=== PATIENT | female | born 1990 | race Caucasian/White ===

== ENCOUNTER 2021-01-09 08:03 | Inpatient (IN) ==
[2021-01-09] MEDS ORDERED: OXYTOCIN 30 UNITS/500 ML BAG IV PRN ×3 (08:05→19:37)
--- NOTE | 2021-01-09 08:12 | History & Physical Report ---
Date of Service January 09, 2021 Assessment & Plan (1) Encounter for induction of labor: PNL: Rh pos, RI, GBS neg, COVID neg Admit, labs, start IV Epidural when desired; anesthesiology consult placed Proceed with induction of labor per Pitocin augmentation protocol. Anticipate (2) Unfavorable cervix in term : (3) 41 weeks gestation of : (4) Supervision of normal intrauterine in primigravida: Admission and Anticipated Discharge Date Admission Date: January 09, 2021 History of Present Illness Primary Care Provider: Rosalba Gonzales DO Luiza Alberto is a 30 y/o female currently at 41 +2 WGA with an ALISSA 12/31/20 as determined by LMP who is here for IOL due to postdates. Her has been uncomplicated except for postdates and unfavorable cervix in term . She did have a cervical leal cath bulb last night which patient states fell out about 2 hours after returning home. - contractions; + movement; - fluid loss; - bloody show Had regular appointments with OB. Blood type: A+ Antibody screen: negative Labs 06/03/2020 and 06/07/2020 Rubella: Immune VDRL/RPR: Nonreactive Gonorrhea: Neg Chlamydia: Neg HIV: Neg HbSAg: Neg GBS: Negative 12/09/2020 COVID-19 negative today (01/09/2021) Allergies Allergy/AdvReac Type Severity Reaction Status Date / Time sumatriptan Allergy Intermediate Anaphylaxis Verified 01/08/21 19:51 Home Medications Medication Instructions Recorded Confirmed Type ascorbic acid (vitamin C) 1,000 mg 1,000 mg PO DAILY tab 05/27/20 01/08/21 History tablet,extended release magnesium 1 tab PO DAILY 05/27/20 01/08/21 History prenat.vits,zhane,phy-fdlu-bfqqw 1 tab PO DAILY 05/27/20 01/08/21 History riboflavin (vitamin B2) 400 mg 400 mg PO DAILY 05/27/20 01/08/21 History tablet Patient History Medical History 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 Long QT syndrome 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 06/14/14 Migraine without aura Surgical History History of surgery lymphadenectomy S/P wisdom tooth extraction Family History Aunt Breast cancer paternal aunt in her 40's Grandfather (Paternal) Diabetes Mother Long Q-T syndrome Denies family history of Ovarian cancer Colorectal cancer Uterine cancer Social History Smoking Status: Never smoker Hx Alcohol Use: No Hx Substance Use: No 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 Denies shortness of breath or cough. Denies chest pain. Denies breast pain. Denies dysuria or hematuria. Denies leg pain or leg swelling. Denies headache or changes in vision. Physical Exam Physical Exam: General: Alert, oriented. No acute distress. Cardiac: Regular rate and rhythm, no murmurs/rubs/gallops. Respiratory: Clear to auscultation bilaterally a/p, no wheezes/rales/rhonchi. No increased work of breathing. Symmetrical chest rise. No respiratory distress. Abdomen: Gravid. Vertex position. + heart tones. - palpable contractions. EFW 7-8# Pelvic: Dilation 3 cm; Effacement 50%; Station -2; mid and modertae per Dr. Manuel External FHT and external uterine monitors used; Category I tracing; mod FHT variability. Lower Extremities: No lower extremity edema or swelling. No deep calf pain. Harjeet's negative bilaterally Results & Data ([facility]) Laboratory Results Labs at admission today H.2 Hct: 36.6 WBC: 12.55 Plt: 309 Code Status & VTE Plan VTE Prophylaxis Plan VTE Prophylaxis will be ordered: No Supervising Physician Co-Signing Physician Notes Resident Physician Supervision Note: I interviewed and examined the patient. Discussed with Dr. Seymour and agree with findings and plan as documented in the note. Any exceptions or clarifications are listed here: postdates induction 41 2/7 weeks of uncomplicated . cx now favorable after leal. fetus category one. Plan pitocin induction with arom when indicated. epidural on demand. antic ipate . Documented By: Halina Manuel MD, FACOG Resident Activity Tracking Resident Involvement: Resident Care Provided Care Provided: OB Delivery
[2021-01-09 08:22] LABS: Hematocrit (blood only) 36.6 % (37-47); Hemoglobin 13.2 g/dL (12.0-16.0); Mean Corpuscular Hemoglobin 31.4 pg (25-34); Mean Corpuscular Hgb Conc 36.1 g/dL (32-36); Mean Corpuscular Volume 86.9 fL (80-100); Mean Platelet Volume 9.1 fL (7.4-10.4); Platelet Count 309 K/uL (130-400); RDW Coefficient of Variation 13.7 % (11.5-14.5); RDW Standard Deviation 43.4 fL (36.4-46.3); Red Blood Count 4.21 M/uL (4.2-5.4); White Blood Count 12.55 K/uL (4.8-10.8)
[2021-01-09] MEDS: LACTATED RINGER'S 1,000 ML IV PRN ×2 (09:25→12:08)
[2021-01-09] MEDS ORDERED: SODIUM CHLORIDE 0.9% INJ 10 ML VIAL ONE (11:45)
[2021-01-09] MEDS ORDERED: BUPIVACAINE 0.25% 30 ML VIAL ONE (11:45)
[2021-01-09] MEDS ORDERED: fentaNYL citrate 100 MCG/2 ML VIAL ONE (11:45)
[2021-01-09] MEDS ORDERED: ePHEDrine sulfate 50 MG/ML AMP ONE (11:45)
[2021-01-09] MEDS ORDERED: fentaNYL 2MCG/ML ROPIVACAINE 1.25MG/ML 100 ML BAG EPI ONE (11:46)
--- NOTE | 2021-01-09 12:19 | Anesthesiology Consultation ---
Date of Service January 09, 2021 Assessment & Plan (1) Encounter for pre-operative examination: Chart Review Chart Review: Acceptable Risk for Labor Epidural History Height/Weight Height: 5 ft 7 in Weight: 105.233 kg Allergies Allergy/AdvReac Type Severity Reaction Status Date / Time sumatriptan Allergy Intermediate Anaphylaxis Verified 01/08/21 19:51 Medications Home Medications Medication Instructions Recorded Confirmed Last Taken ascorbic acid (vitamin C) 1,000 mg 1,000 mg PO DAILY tab 05/27/20 01/09/21 01/08/21 17:00 tablet,extended release prenat.vits,zhane,iql-bvhn-xpzkv 1 tab PO DAILY 05/27/20 01/09/21 01/08/21 12:00 riboflavin (vitamin B2) 400 mg 400 mg PO DAILY 05/27/20 01/09/21 01/08/21 12:00 tablet magnesium 400 mg PO DAILY 01/09/21 01/09/21 01/08/21 12:00 Active Medications Generic Name Dose Route Start Last Admin Trade Name Freq PRN Reason Stop Dose Admin Oxytocin 30 units in 500 mls @ 7 mls/hr 01/09/21 08:05 01/09/21 11:20 Pitocin IV 01/11/21 08:04 0.42 units/hr .Q24H PRN 7 mls/hr Labor Induction/Augmentation Titration Protocol 0.42 UNITS/HR Lactated Ringer's 1,000 mls @ 125 mls/hr 01/09/21 08:05 01/09/21 12:08 Lr IV 01/11/21 08:04 125 mls/hr .Q8H PRN Administration L&D Protocol Protocol Past Medical History Medical History 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 Long QT syndrome 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 06/14/14 Migraine without aura Past Family History Family History Aunt Breast cancer paternal aunt in her 40's Grandfather (Paternal) Diabetes Mother Long Q-T syndrome Denies family history of Ovarian cancer Colorectal cancer Uterine cancer Past Surgical History Surgical History History of surgery lymphadenectomy S/P wisdom tooth extraction Social History Smoking Status: Never smoker Hx Alcohol Use: No Hx Substance Use: No Physical Exam Vital Signs Last Vital Signs Temp 36.7 C 01/09/21 10:54 Pulse 83 01/09/21 12:14 Resp 18 01/09/21 10:54 BP 137/86 01/09/21 11:31 Pulse Ox 99 01/09/21 12:14 Testing Laboratory Results 01/09/21 08:16
[2021-01-09] MEDS ORDERED: fentaNYL 2MCG/ML ROPIVACAINE 1.25MG/ML 100 ML BAG EPI PRN (13:18)
[2021-01-09] MEDS ORDERED: ePHEDrine sulfate 50 MG/ML AMP IV PRN (13:18)
[2021-01-09] MEDS ORDERED: NALOXONE HCL 0.4 MG/1 ML VIAL/CARP IV PRN (13:18)
[2021-01-09] MEDS ORDERED: NALOXONE HCL 1 MG in SODIUM CHLORIDE 0.9% 1000ML 1,000 ML IV PRN (13:18)
[2021-01-09] MEDS ORDERED: ONDANSETRON INJ 2 MG/ML 2 ML VIAL IV PRN (13:18)
--- NOTE | 2021-01-09 14:11 | Labor Progress Brief Note ---
Date of Service January 09, 2021 Subjective Review of Systems comfortable with epidural Assessment & Plan (1) Encounter for induction of labor: Admission and Anticipated Discharge Date Admission Date: January 09, 2021 continue current management. fetus category one. anticipate . Physical Exam Constitutional: WD/WN, vitals as above Psychiatric: A+Ox3, euthymic affect Genitourinary: cx--3/75/-2 arom--clear toco--q2-4min, pit at 11 efm--130s with mod variability, accels present, no decels Results & Data ([facility]) Vital Signs (Past 12 Hours) Vital Signs Temp Pulse Resp BP Pulse Ox 01/09/21 14:05 85 99 01/09/21 14:00 68 97 01/09/21 13:55 67 99 01/09/21 13:52 88 126/74 01/09/21 13:50 70 97 01/09/21 13:46 96 H 116/69 01/09/21 13:45 78 98 01/09/21 13:41 87 119/70 01/09/21 13:40 81 98 01/09/21 13:37 90 125/71 01/09/21 13:35 87 97 01/09/21 13:32 81 125/73 01/09/21 13:30 88 18 98 01/09/21 13:25 91 H 103/57 L 94 01/09/21 13:23 86 125/63 01/09/21 13:21 88 124/67 01/09/21 13:20 83 96 01/09/21 13:19 96 H 134/68 01/09/21 13:17 75 133/71 01/09/21 13:16 16 01/09/21 13:15 83 97 01/09/21 13:10 95 H 97 01/09/21 13:05 84 97 01/09/21 13:00 88 93 01/09/21 12:58 90 93 01/09/21 12:55 99 H 98 01/09/21 12:50 91 H 98 01/09/21 12:45 73 98 01/09/21 12:40 78 98 01/09/21 12:35 75 98 01/09/21 12:30 76 98 01/09/21 12:25 79 135/71 99 01/09/21 12:19 74 100 01/09/21 12:14 83 99 01/09/21 12:09 75 99 01/09/21 12:04 77 99 01/09/21 11:59 74 99 01/09/21 11:54 84 100 01/09/21 11:44 81 99 01/09/21 11:39 91 H 99 01/09/21 11:34 73 98 01/09/21 11:31 76 137/86 01/09/21 11:30 72 142/81 H 01/09/21 10:54 36.7 C 18 01/09/21 10:53 68 118/76 01/09/21 09:34 76 122/74 01/09/21 08:32 37 C 20 01/09/21 08:17 96 H 119/88 Coding Level of Care Code None Diagnoses Encounter for induction of labor Z34.90
--- NOTE | 2021-01-09 17:04 | Labor Progress Brief Note ---
Date of Service January 09, 2021 Subjective comfortable with epidural Assessment & Plan (1) Encounter for induction of labor: Admission and Anticipated Discharge Date Admission Date: January 09, 2021 Continue current management. ctx looking like they will likely be adequate. fetus category one. Physical Exam Constitutional: WD/WN, vitals as above Psychiatric: A+Ox3, euthymic affect Genitourinary: cx--4-5/90/-2 toco--q2-3min, pit at 17 iupc placed--initially looking like adeuqate mvus efm--130s wtih mod varibility, accels ot 150s, no decels Results & Data ([facility]) Vital Signs (Past 12 Hours) Vital Signs Temp Pulse Resp BP Pulse Ox 01/09/21 17:00 74 98 01/09/21 16:55 74 117/67 99 01/09/21 16:50 67 99 01/09/21 16:45 68 98 01/09/21 16:41 76 124/69 01/09/21 16:40 74 100 01/09/21 16:35 72 99 01/09/21 16:30 65 99 01/09/21 16:26 67 118/68 01/09/21 16:25 72 98 01/09/21 16:20 78 99 01/09/21 16:15 94 H 98 01/09/21 16:11 82 138/77 01/09/21 16:10 81 99 01/09/21 16:05 107 H 98 01/09/21 16:00 79 18 99 01/09/21 15:55 67 117/71 99 01/09/21 15:50 70 99 01/09/21 15:45 76 98 01/09/21 15:41 80 126/74 01/09/21 15:40 75 99 01/09/21 15:35 74 100 01/09/21 15:30 77 16 98 01/09/21 15:27 71 129/76 01/09/21 15:25 74 99 01/09/21 15:20 75 98 01/09/21 15:15 78 99 01/09/21 15:11 72 119/66 01/09/21 15:10 72 99 01/09/21 15:05 71 99 01/09/21 15:00 72 16 98 01/09/21 14:58 36.6 C 14 01/09/21 14:55 65 120/67 100 01/09/21 14:50 66 98 01/09/21 14:45 71 98 01/09/21 14:41 65 120/63 01/09/21 14:40 64 98 01/09/21 14:35 76 98 01/09/21 14:30 70 18 98 01/09/21 14:25 62 118/71 98 01/09/21 14:20 72 97 01/09/21 14:15 72 95 01/09/21 14:10 71 129/74 98 01/09/21 14:08 36.8 C 18 01/09/21 14:05 85 99 01/09/21 14:00 68 97 01/09/21 13:55 67 99 01/09/21 13:52 88 126/74 01/09/21 13:50 70 97 01/09/21 13:46 96 H 116/69 01/09/21 13:45 78 18 98 01/09/21 13:41 87 119/70 01/09/21 13:40 81 98 01/09/21 13:37 90 125/71 01/09/21 13:35 87 97 01/09/21 13:32 81 125/73 01/09/21 13:30 88 18 98 01/09/21 13:25 91 H 103/57 L 94 01/09/21 13:23 86 125/63 01/09/21 13:21 88 124/67 01/09/21 13:20 83 96 01/09/21 13:19 96 H 134/68 01/09/21 13:17 75 133/71 01/09/21 13:16 16 01/09/21 13:15 83 97 01/09/21 13:10 95 H 97 01/09/21 13:05 84 97 01/09/21 13:00 88 93 01/09/21 12:58 90 93 01/09/21 12:55 99 H 98 01/09/21 12:50 91 H 98 01/09/21 12:45 73 98 01/09/21 12:40 78 98 01/09/21 12:35 75 98 01/09/21 12:30 76 98 01/09/21 12:25 79 135/71 99 01/09/21 12:19 74 100 01/09/21 12:14 83 99 01/09/21 12:09 75 99 01/09/21 12:04 77 99 01/09/21 11:59 74 99 01/09/21 11:54 84 100 01/09/21 11:44 81 99 01/09/21 11:39 91 H 99 01/09/21 11:34 73 98 01/09/21 11:31 76 137/86 01/09/21 11:30 72 142/81 H 01/09/21 10:54 36.7 C 18 01/09/21 10:53 68 118/76 01/09/21 09:34 76 122/74 01/09/21 08:32 37 C 20 01/09/21 08:17 96 H 119/88 Coding Level of Care Code None Diagnoses Encounter for induction of labor Z34.90
--- NOTE | 2021-01-09 18:42 | Labor Progress Brief Note ---
Date of Service January 09, 2021 Subjective pushing Assessment & Plan (1) Encounter for induction of labor: Admission and Anticipated Discharge Date Admission Date: January 09, 2021 fetus reassuring category 2, begin second stage. anticipate . Physical Exam Constitutional: WD/WN, vitals as above Psychiatric: A+Ox3, euthymic affect Genitourinary: cx--c/c/+3 per nursing efm--120s with mod variability, accels present, variables present with contractions Results & Data ([facility]) Vital Signs (Past 12 Hours) Vital Signs Temp Pulse Resp BP Pulse Ox 01/09/21 18:40 109 H 100 01/09/21 18:35 103 H 99 01/09/21 18:30 97 H 99 01/09/21 18:26 71 131/75 01/09/21 18:25 76 100 01/09/21 18:20 85 99 01/09/21 18:15 78 99 01/09/21 18:11 68 127/73 01/09/21 18:10 68 99 01/09/21 18:05 75 99 01/09/21 18:00 65 100 01/09/21 17:56 65 119/68 01/09/21 17:55 69 99 01/09/21 17:50 36.7 C 70 18 99 01/09/21 17:45 96 H 98 01/09/21 17:40 67 119/73 99 01/09/21 17:35 67 99 01/09/21 17:30 70 16 99 01/09/21 17:26 63 121/74 01/09/21 17:25 65 98 01/09/21 17:20 63 99 01/09/21 17:15 80 99 01/09/21 17:10 74 117/72 100 01/09/21 17:05 65 99 01/09/21 17:00 74 18 98 01/09/21 16:55 74 117/67 99 01/09/21 16:50 67 99 01/09/21 16:45 68 98 01/09/21 16:41 76 124/69 01/09/21 16:40 74 100 01/09/21 16:35 72 99 01/09/21 16:30 65 99 01/09/21 16:26 67 118/68 01/09/21 16:25 72 98 01/09/21 16:20 78 99 01/09/21 16:15 94 H 98 01/09/21 16:11 82 138/77 01/09/21 16:10 81 99 01/09/21 16:05 107 H 98 01/09/21 16:00 79 18 99 01/09/21 15:55 67 117/71 99 01/09/21 15:50 70 99 01/09/21 15:45 76 98 01/09/21 15:41 80 126/74 01/09/21 15:40 75 99 01/09/21 15:35 74 100 01/09/21 15:30 77 16 98 01/09/21 15:27 71 129/76 01/09/21 15:25 74 99 01/09/21 15:20 75 98 01/09/21 15:15 78 99 01/09/21 15:11 72 119/66 01/09/21 15:10 72 99 01/09/21 15:05 71 99 01/09/21 15:00 72 16 98 01/09/21 14:58 36.6 C 14 01/09/21 14:55 65 120/67 100 01/09/21 14:50 66 98 01/09/21 14:45 71 98 01/09/21 14:41 65 120/63 01/09/21 14:40 64 98 01/09/21 14:35 76 98 01/09/21 14:30 70 18 98 01/09/21 14:25 62 118/71 98 01/09/21 14:20 72 97 01/09/21 14:15 72 95 01/09/21 14:10 71 129/74 98 01/09/21 14:08 36.8 C 18 01/09/21 14:05 85 99 01/09/21 14:00 68 97 01/09/21 13:55 67 99 01/09/21 13:52 88 126/74 01/09/21 13:50 70 97 01/09/21 13:46 96 H 116/69 01/09/21 13:45 78 18 98 01/09/21 13:41 87 119/70 01/09/21 13:40 81 98 01/09/21 13:37 90 125/71 01/09/21 13:35 87 97 01/09/21 13:32 81 125/73 01/09/21 13:30 88 18 98 01/09/21 13:25 91 H 103/57 L 94 01/09/21 13:23 86 125/63 01/09/21 13:21 88 124/67 01/09/21 13:20 83 96 01/09/21 13:19 96 H 134/68 01/09/21 13:17 75 133/71 01/09/21 13:16 16 01/09/21 13:15 83 97 01/09/21 13:10 95 H 97 01/09/21 13:05 84 97 01/09/21 13:00 88 93 01/09/21 12:58 90 93 01/09/21 12:55 99 H 98 01/09/21 12:50 91 H 98 01/09/21 12:45 73 98 01/09/21 12:40 78 98 01/09/21 12:35 75 98 01/09/21 12:30 76 98 01/09/21 12:25 79 135/71 99 01/09/21 12:19 74 100 01/09/21 12:14 83 99 01/09/21 12:09 75 99 01/09/21 12:04 77 99 01/09/21 11:59 74 99 01/09/21 11:54 84 100 01/09/21 11:44 81 99 01/09/21 11:39 91 H 99 01/09/21 11:34 73 98 01/09/21 11:31 76 137/86 01/09/21 11:30 72 142/81 H 01/09/21 10:54 36.7 C 18 01/09/21 10:53 68 118/76 01/09/21 09:34 76 122/74 01/09/21 08:32 37 C 20 01/09/21 08:17 96 H 119/88 Coding Level of Care Code None Diagnoses Encounter for induction of labor Z34.90
[2021-01-09] MEDS ORDERED: oxyCODONE/ACETAMINOPHEN 5mg/325mg TAB PO PRN (19:32)
[2021-01-09] MEDS ORDERED: ACETAMINOPHEN 325 MG TAB PO PRN (19:32)
--- NOTE | 2021-01-09 19:35 | Delivery Summary ---
Vaginal Delivery Summary Date of Service January 09, 2021 Pre-operative Diagnosis: at 41 2/7 weeks Post-operative Diagnosis: same Procedure: pitocin induction epidural arom second degree laceration and repair EBL: 350cc Anesthesia: epidural Procedure: The patient pushed for about one hour to deliver a viable female in yvette position. The nose and mouth were bulb suctioned on the perineum and the rest of the infant was then delivered without difficulty. The baby was vigorous. The nose and mouth were again bulb suctioned and the infant was placed in the maternal abdomen for drying and attention. Cord was clamped and cut at one minute of life. Cord blood and segment obtained. Placenta d elivered spontaneous, intact with a three vessel cord. Cervix/sulci/rectum were intact. A second degree perineal laceration was repaired in the normal standard fashion. Hemostasis obtained with dilute pitocin and fundal massage. Apgars were 8/9. Mother and baby doing well at the end of the delivery. Vaginal Delivery Summary and 2nd Degree LAC [facility] [place] Vaginal Delivery Charge Vaginal Delivery Codes: 24836 global code for the antepartum, delivery, and post- Delivery Type Details: and 2nd Degree LAC
[2021-01-09] MEDS ORDERED: DIPHTHERIA/TETANUS/PERTUSSIS 0.5 ML SYR/VIAL IM ONE (19:37)
[2021-01-09] MEDS ORDERED: HYDROCORTISONE ACETATE 25 MG SUPP PR PRN (19:37)
[2021-01-09] MEDS ORDERED: SUPERCREAM 0.870% 15 GM JAR EXT PRN (19:37)
[2021-01-09] MEDS ORDERED: bisacodyL 10 MG SUPP PR PRN (19:37)
[2021-01-09] MEDS ORDERED: BENZOCAINE 20% AER SPR 82.5 GM CAN EXT PRN (19:37)
--- NOTE | 2021-01-09 21:32 | Anesthesia Procedure Note ---
Date of Service January 09, 2021 Anesthesia Post Epidural Note Vital Signs Vital Signs: Temp Pulse Resp BP Pulse Ox 36.7 C 86 18 104/66 97 01/09/21 17:50 01/09/21 21:25 01/09/21 17:50 01/09/21 21:25 01/09/21 19:15 Pain Intensity Bilateral Abdomen: Pain Intensity: 0 Notes Mental Status: alert / awake / arousable and participated in evaluation Nausea / Vomiting: adequately controlled Pain: adequately controlled Airway Patency, RR, SpO2: stable & adequate BP & HR: stable & adequate Hydration State: stable & adequate Neuraxial Anesthesia: was administered and sensory block is resolving Anesthetic Complications: no major complications apparent Epidural: Removed without complications and With tip intact
[2021-01-09] MEDS: DOCUSATE SODIUM 100 MG CAP PO SCH (22:36)
[2021-01-09] MEDS: IBUPROFEN 600 MG TAB PO PRN (23:11)
[2021-01-10 06:08] LABS: Hematocrit (blood only) 35.2 % (37-47); Hemoglobin 12.4 g/dL (12.0-16.0)
--- NOTE | 2021-01-10 06:34 | Obstetrical Progress Note ---
Date of Service <Dawn Contreras DO - Last Filed: 01/10/21 06:34> January 10, 2021 Assessment & Plan <Dawn Contreras DO - Last Filed: 01/10/21 06:34> (1) state: - PNL: Rh pos, RI, GBS neg, COVID neg - Feels well today. Eating well, voiding well, ambulating well. - Pain well controlled with ibuprofen 600mg Q4H PRN - Routine care -- OOB, ambulation, diet progression as tolerated - After discharge will have 6 week follow-up with Dr. Manuel. Subjective <Dawn Contreras DO - Last Filed: 01/10/21 06:34> Luiza Alberto is a 30 y/o female who is PPD #1 following spontaneous vaginal delivery w/ repaired 2nd degree laceration after IOL due to postdates at 41 +2 weeks. She reports feeling well overall this morning. Minimal abdominal cramping and 2/10 pain (most prominent in her low back) well managed on analgesics. Voiding without dysuria. Tolerating meals overnight without difficulty, nausea, or vomiting. Patient has been able to ambulate some; no lightheadedness or dizziness. She is passing gas. Has persistent lochia with some improvement this morning. Currently . Review of Systems Denies fever or chills. Denies shortness of breath or cough. Denies chest pain. Denies breast pain. Denies dysuria. Denies leg pain or leg swelling. Denies headache or changes in vision. Physical Exam <Dawn Contreras DO - Last Filed: 01/10/21 06:34> General: Alert, oriented. No acute distress. Cardiac: Regular rate and rhythm. No murmurs. Respiratory: Clear to auscultation bilaterally a/p, no wheezes/rales/rhonchi. No increased work of breathing. Symmetrical chest rise. No respiratory distress. Abdomen: Soft, nontender, nondistended. Bowel sounds present. Uterus: Uterine fundus firm, palpable at umbilicus on left. Lower Extremities: No lower extremity edema or swelling. No deep calf pain. Harjeet's negative bilaterally. Results & Data ([facility]) <Dawn Contreras DO - Last Filed: 01/10/21 06:34> Vital Signs (Past 12 Hours) Vital Signs Temp Pulse Pulse Resp BP BP Pulse Ox 01/10/21 03:00 36.6 C 77 18 117/77 96 01/09/21 23:37 36.8 C 80 16 120/73 96 01/09/21 22:20 36.9 C 86 18 142/79 H 95 01/09/21 22:10 86 118/73 01/09/21 21:55 90 119/76 01/09/21 21:40 96 H 111/76 01/09/21 21:25 86 104/66 01/09/21 21:10 80 112/58 L 01/09/21 20:55 93 H 128/80 01/09/21 20:40 87 112/71 01/09/21 20:25 93 H 124/58 L 01/09/21 20:10 92 H 121/63 01/09/21 19:55 87 117/65 01/09/21 19:49 78 122/60 01/09/21 19:30 100 H 152/72 H 01/09/21 19:15 86 97 01/09/21 19:10 135 H 100 01/09/21 19:05 92 H 99 01/09/21 19:00 110 H 100 01/09/21 18:56 130 H 165/71 H 01/09/21 18:55 82 98 01/09/21 18:50 91 H 99 01/09/21 18:45 90 97 01/09/21 18:42 106 H 125/95 01/09/21 18:40 109 H 100 01/09/21 18:35 103 H 99 01/09/21 18:30 97 H 99 Laboratory Results 0558 this AM: Hgb 12.4, Hct 35.2 <Halina Manuel MD, FACOG - Last Filed: 01/10/21 06:41> Co-Signing Physician Notes Resident Physician Supervision Note: I interviewed and examined the patient. Discussed with Dr. Contreras and agree with findings and plan as documented in the note. Any exceptions or clarifications are listed here: Doing well. Routine care. Documented By: Halina Manuel MD, FACOG Resident Activity Tracking <Dawn Contreras DO - Last Filed: 01/10/21 06:34> Resident Involvement: Resident Care Provided Care Provided: OB Delivery
[2021-01-10] MEDS: PRENATAL VITAMIN 1 TAB PO SCH (09:44)
[2021-01-10] MEDS: DOCUSATE SODIUM 100 MG CAP PO SCH ×2 (09:44→20:05)
[2021-01-10] MEDS: IBUPROFEN 600 MG TAB PO PRN ×2 (09:44→18:19)
[2021-01-10] MEDS ORDERED: bisacodyL 5 MG TABEC PO SCH (20:00)
[2021-01-11] MEDS: IBUPROFEN 600 MG TAB PO PRN ×2 (03:07→08:38)
--- NOTE | 2021-01-11 06:54 | Obstetrical Progress Note ---
Date of Service <Dawn Wander Contreras DO - Last Filed: 01/11/21 06:54> January 11, 2021 Assessment & Plan <Dawn Wander Contreras DO - Last Filed: 01/11/21 06:54> (1) state: PPD #2 - PNL: Rh pos, RI, GBS neg, COVID neg - Feels well today. Eating well, voiding well, ambulating well. - Pain well controlled with ibuprofen 600mg Q4H PRN - Routine care -- OOB, ambulation, diet progression as tolerated - After discharge will have 6 week follow-up with Dr. Manuel. - Plan for d/c home today. Subjective <Dawn Wander Contreras DO - Last Filed: 01/11/21 06:54> Luiza Alberto is a 30 y/o female who is PPD #2 following spontaneous vaginal delivery after IOL due to postdates at 41 +2 weeks. She reports feeling well overall this morning. Minimal abdominal cramping and 1-2/10 pain well managed on analgesics. Voiding without dysuria. Tolerating meals overnight without difficulty, nausea, or vomiting. Patient has been able to ambulate some. She is passing gas but has not yet had a bowel movement. Has persistent lochia with some improvement this morning. Currently ; reports cluster feeding overnight and some nipple soreness but no nipple cracking or bleeding. Review of Systems Denies fever or chills. Denies shortness of breath or cough. Denies chest pain. Denies breast pain. Denies dysuria. Denies leg pain or leg swelling. Denies headache or changes in vision. Physical Exam <Dawn Contreras DO - Last Filed: 01/11/21 06:54> General: Alert, oriented. No acute distress. Cardiac: Regular rate and rhythm. No murmurs. Respiratory: Clear to auscultation bilaterally a/p, no wheezes/rales/rhonchi. No increased work of breathing. Symmetrical chest rise. No respiratory distress. Abdomen: Soft, nontender, nondistended. Bowel sounds present. Uterus: Uterine fundus firm, palpable at umbilicus on left. Lower Extremities: No lower extremity edema or swelling. No deep calf pain. Harjeet's negative bilaterally. Results & Data ([facility]) <Dawn Contreras DO - Last Filed: 01/11/21 06:54> Vital Signs (Past 12 Hours) Vital Signs Temp Pulse Resp BP 01/10/21 23:15 36.8 C 83 18 121/82 01/10/21 20:00 36.9 C 83 18 117/79 <Emilia Haines MD, FACOG - Last Filed: 01/11/21 09:13> Co-Signing Physician Notes Resident Physician Supervision Note: I interviewed and examined the patient. Discussed with Dr. Contreras and agree with findings and plan as documented in the note. Any exceptions or clarifications are listed here: [None] Documented By: Emilia Haines MD, FACOG Resident Activity Tracking <Dawn Contreras DO - Last Filed: 01/11/21 06:54> Resident Involvement: Resident Care Provided Care Provided: OB Delivery
[2021-01-11] MEDS: DOCUSATE SODIUM 100 MG CAP PO SCH (08:38)
[2021-01-11] MEDS: PRENATAL VITAMIN 1 TAB PO SCH (08:38)
== END 2021-01-11 14:05 | disposition home or self-care (01) | DRG 807 ==
LOC: 4S1 08:03 → 4S2 22:42

== ENCOUNTER 2022-11-12 07:49 | Inpatient (IN) ==
[2022-11-12] MEDS ORDERED: LIDOCAINE 1% LOCAL 20 ML VIAL INFIL PRN (08:38)
[2022-11-12] MEDS ORDERED: OXYTOCIN 30 UNITS/500 ML BAG IV PRN ×2 (08:38)
--- NOTE | 2022-11-12 08:52 | History & Physical Report ---
Date of Service November 12, 2022 Assessment & Plan (1) Encounter for induction of labor: Plan - Patient admitted to labor and delivery for initiation of medical induction of labor - No Ann bulb placement - Patient is at 3/50/-2 w/o evidence of contractions, thus oxytocin augmentation of labor will be started per protocol - Once contractions are progressing, will consider ROM - Will anticipate epidural as contractions arise - Labs pending Admission and Anticipated Discharge Date Admission Date: November 12, 2022 History of Present Illness Chief Complaint: induction of Labor Primary Care Provider: Rosalba Gonzales, Subjective: Luiza is a 32 year old female currently at 41 w 2 d with ALISSA 11/05/22 determined by US #1, who is presenting to Labor and Delivery for induction of labor. 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 Hx: Hx of LGSIL (2013), no abnormals since, no hx of STI Labs: Blood Type: A+ Antibody Screen: Negative Hg/Hct (today): Pending WBC/Plt (today): Pending Rubella: Immune RPR: Non-reactive Gonorrhea: Negative Chlamydia: Negative HIV: Negative HbSAg: Negative GBS: Negative Cff-DNA: Low risk ROS: - Denies fever, chills, sweats - Denies dyspnea or pleuritic pain - Denies chest pain, palpitations, or pressure - Denies breast pain - Denies dysuria - Denies headache or visual changes Allergies Allergy/AdvReac Type Severity Reaction Status Date / Time sumatriptan Allergy Intermediate Anaphylaxis Verified 11/08/22 10:57 Home Medications Medication Instructions Recorded Confirmed Type ascorbic acid (vitamin C) 1,000 mg 1,000 mg PO DAILY 05/27/20 11/12/22 History tablet,extended release prenat.vits,zhane,uyg-rqgh-[id number] 1 tab PO DAILY 05/27/20 11/12/22 History riboflavin (vitamin B2) 400 mg 400 mg PO DAILY 05/27/20 11/12/22 History tablet magnesium 200 mg tablet 400 mg PO DAILY 01/09/21 11/12/22 History Patient History Medical History (Updated 11/12/22 @ 08:49 by Mehnaz Albert DO) 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 History of chicken pox Long QT syndrome 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 06/14/14 Migraine without aura state Surgical History (Updated 03/30/22 @ 10:07 by Deb Romero) History of surgery lymphadenectomy S/P wisdom tooth extraction Status post club foot correction at Family History Aunt Breast cancer paternal aunt in her 40's Grandfather (Paternal) Diabetes Mother Long Q-T syndrome Denies family history of Ovarian cancer Colorectal cancer Uterine cancer Social History (Updated 03/30/22 @ 10:01 by Deb Romero) Smoking Status: Never smoker Hx Alcohol Use: No Hx Substance Use: No Preferred Language: Mauritian Communication Ability: Effective Pit Manager Required: No Beliefs That Will Affect Care: None marital status: marital status details: Santana Alberto(30) [phone] Current Living Situation: Spouse Current Living Situation Comment: lives with spouse, child, no pets current occupational status: employed current occupation: [employer] Other Information That Helps Us Care for You: No Feels Safe at Home: Yes Safety Concerns: Feels Safe At This Time Dental Care, Regularly: Yes Seatbelt Use: always Sunscreen Use: Yes Assistive Devices: None Physical Exam Physical Exam: General: Alert, oriented. No acute distress. Cardiac: Regular rate and rhythm, no murmurs/rubs/gallops. Respiratory: Clear to auscultation bilaterally a/p, no wheezes/rales/rhonchi. No increased work of breathing. Symmetrical chest rise. No respiratory distress. Abdomen: Gravid; FHTs reactive; Position: Vertex by Shabbir Maneuver Pelvic: Dilation 3 cm; Effacement 50; Station -[address] Horvath Lower Extremities: No lower extremity edema or swelling. No deep calf pain. Harjeet's negative bilaterally. Results & Data ([facility]) Vital Signs (Past 12 Hours) Vital Signs Temp Pulse Resp BP 11/12/22 08:26 81 135/74 11/12/22 08:11 80 136/84 11/12/22 07:54 36.6 C 78 20 135/85 11/12/22 08:08 36.6 C 80 20 136/84 Code Status & VTE Plan VTE Prophylaxis Plan VTE Prophylaxis will be ordered: Yes Resident Activity Tracking Resident Involvement: Resident Care Provided Care Provided: OB Delivery
[2022-11-12] MEDS: LACTATED RINGER'S 1,000 ML IV PRN ×2 (09:06→13:18)
[2022-11-12 09:29] LABS: Hematocrit (blood only) 37.1 % (37.0-47.0); Hemoglobin 13.1 g/dl (12.0-16.0); Mean Corpuscular Hemoglobin 30.8 pg (25.0-34.0); Mean Corpuscular Hgb Conc 35.3 g/dL (32.0-36.0); Mean Corpuscular Volume 87.1 fL (80.0-100.0); Mean Platelet Volume 10.1 fL (9.4-12.4); Platelet Count 267 K/uL (130-400); RDW Coefficient of Variation 13.6 % (11.5-14.5); RDW Standard Deviation 42.6 fL (36.4-46.3); Red Blood Count 4.26 M/uL (4.20-5.40); White Blood Count 10.87 K/ul (4.8-10.8)
[2022-11-12] MEDS ORDERED: BUPIVACAINE 0.25% 30 ML VIAL ONE (13:01)
[2022-11-12] MEDS ORDERED: LIDOCAINE 2%/EPINEPHRINE 1:200,000 20 ML SDV ONE (13:01)
[2022-11-12] MEDS ORDERED: SODIUM CHLORIDE 0.9% INJ 10 ML VIAL ONE (13:01)
[2022-11-12] MEDS ORDERED: ePHEDrine sulfate 50 MG/ML AMP ONE (13:01)
[2022-11-12] MEDS ORDERED: fentaNYL citrate 100 MCG/2 ML VIAL ONE (13:01)
[2022-11-12] MEDS ORDERED: fentaNYL 2MCG/ML ROPIVACAINE 1.25MG/ML 100 ML BAG EPI ONE (13:02)
[2022-11-12] MEDS ORDERED: ONDANSETRON INJ 2 MG/ML 2 ML VIAL IV PRN (13:10)
[2022-11-12] MEDS ORDERED: NALBUPHINE HCL INJ 10 MG/ML AMP IV PRN (13:10)
[2022-11-12] MEDS ORDERED: NALOXONE HCL 0.4 MG/1 ML VIAL/CARP IV PRN (13:10)
[2022-11-12] MEDS ORDERED: fentaNYL 2MCG/ML ROPIVACAINE 1.25MG/ML 100 ML BAG EPI PRN (13:10)
[2022-11-12] MEDS ORDERED: NALOXONE HCL 1 MG in SODIUM CHLORIDE 0.9% 1000ML 1,000 ML IV PRN (13:10)
[2022-11-12] MEDS ORDERED: ePHEDrine sulfate 50 MG/ML AMP IV PRN (13:10)
[2022-11-12] MEDS ORDERED: diphenhydrAMINE 50 MG/ML VIAL IV PRN (13:10)
--- NOTE | 2022-11-12 13:12 | Anesthesiology Consultation ---
Date of Service November 12, 2022 Assessment & Plan ASA ASA2 Proposed Anesthesia Anesthesia Type: General Risk / Benefits Reviewed With: PT / POA / Parent / Guardian, Accepts Plan and Informed Consent Obtained Additional Comments: family hx but not presonal hx of long qt History Height/Weight Height: 5 ft 7 in Weight: 102.058 kg Allergies Allergy/AdvReac Type Severity Reaction Status Date / Time sumatriptan Allergy Intermediate Anaphylaxis Verified 11/08/22 10:57 Medications Home Medications Medication Instructions Recorded Confirmed Last Taken ascorbic acid (vitamin C) 1,000 mg 1,000 mg PO DAILY 05/27/20 11/12/22 11/11/22 22:30 tablet,extended release prenat.vits,zhane,gai-xsli-anjhj 1 tab PO DAILY 05/27/20 11/12/22 11/11/22 22:30 riboflavin (vitamin B2) 400 mg 400 mg PO DAILY 05/27/20 11/12/22 11/11/22 22:30 tablet magnesium 200 mg tablet 400 mg PO DAILY 01/09/21 11/12/22 11/11/22 22:30 Active Medications Generic Name Dose Route Start Last Admin Trade Name Freq PRN Reason Stop Dose Admin Lactated Ringer's 1,000 mls @ 125 mls/hr 11/12/22 08:38 11/12/22 13:45 Lr IV 11/14/22 08:37 125 mls/hr .Q8H PRN Infusion L&D Protocol Protocol Oxytocin 30 units in 500 mls @ 9 mls/hr 11/12/22 08:38 11/12/22 13:00 Pitocin IV 11/14/22 08:37 0.66 units/hr .Q24H PRN 11 mls/hr Labor Induction/Augmentation Titration Protocol 0.54 UNITS/HR Past Medical History Medical History 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 History of chicken pox Long QT syndrome 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 06/14/14 Migraine without aura state Exercise / Class Metabolic Activity II 4-5 Yardwork/Stairs/Walk up hill Past Family History Family History Aunt Breast cancer paternal aunt in her 40's Grandfather (Paternal) Diabetes Mother Long Q-T syndrome Denies family history of Ovarian cancer Colorectal cancer Uterine cancer Past Surgical History Surgical History History of surgery lymphadenectomy S/P wisdom tooth extraction Status post club foot correction at Past Anesthesia History No Hx of Anesthesia Complications and No Family Hx of Anesthesia Complications History of PONV No Hx of PONV and No Hx of Motion Sickness Social History Smoking Status: Never smoker Hx Alcohol Use: No Hx Substance Use: No Review of Systems denies fever/cough/ colds/ chest pain/ SOB/ RHONA denies RHONA Physical Exam Vital Signs Last Vital Signs Temp 36.7 C 11/12/22 12:00 Pulse 73 11/12/22 13:10 Resp 20 11/12/22 12:00 BP 130/72 11/12/22 13:10 Pulse Ox 97 11/12/22 13:09 ENMT Mouth: no TMJ abnormality and no dentition abnormality Thyromental Distance: > or= 3.5 Finger Breadths Mallampati Class: II Neck neck extension not limited Respiratory normal respiratory effort; no respiratory distress Auscultation: lungs clear to auscultation bilaterally Cardiovascular Rate/Rhythm: regular rate and regular rhythm Neurologic moves all extremities Psychiatric Orientation: alert and oriented x 3 Testing Laboratory Results 11/12/22 09:00 Blood Type A Positive 11/12/22 09:00 Antibody Screen NEGATIVE 11/12/22 09:00
--- NOTE | 2022-11-12 14:39 | Labor Progress Brief Note ---
Date of Service November 12, 2022 Subjective Delayed note entry due to concurrent care of other patients. Patient seen near 2pm; comfortable with recently placed epidural. Agreeable to AROM. Assessment & Plan (1) Encounter for induction of labor: Plan: Continue pitocin, Epidural, s/p AROM, anticipate . Admission and Anticipated Discharge Date Admission Date: November 12, 2022 Physical Exam Genitourinary: 80/-2 well applied, vertex AROM clear fluid FHT Cat 1 [place]orena Q4m Pitocin in use Results & Data ([facility]) Vital Signs (Past 12 Hours) Vital Signs Temp Pulse Resp BP Pulse Ox 11/12/22 14:34 78 98 11/12/22 14:29 98 11/12/22 14:29 98 H 11/12/22 14:29 83 118/80 11/12/22 14:24 96 H 99 11/12/22 14:19 111 H 97 11/12/22 14:14 86 98 11/12/22 14:11 91 H 107/69 11/12/22 14:09 85 99 11/12/22 14:06 101 H 121/70 11/12/22 14:04 94 H 98 11/12/22 14:01 98 H 130/75 11/12/22 13:59 90 97 11/12/22 13:56 99 H 123/74 11/12/22 13:54 96 H 97 11/12/22 13:49 110 H 132/89 98 11/12/22 13:47 96 H 129/84 11/12/22 13:45 91 H 124/77 11/12/22 13:44 88 98 11/12/22 13:43 88 127/76 11/12/22 13:41 88 133/82 11/12/22 13:39 98 11/12/22 13:39 86 11/12/22 13:39 85 136/83 11/12/22 13:34 90 98 11/12/22 13:29 85 97 11/12/22 13:28 99 H 92 11/12/22 13:24 109 H 99 11/12/22 13:19 93 H 98 11/12/22 13:14 82 98 11/12/22 13:10 73 130/72 11/12/22 13:09 81 97 11/12/22 12:59 81 133/83 11/12/22 12:00 20 11/12/22 12:00 98.1 F 20 11/12/22 12:03 83 135/69 11/12/22 11:02 75 121/86 11/12/22 10:02 75 124/83 11/12/22 09:10 81 126/70 11/12/22 08:55 114 H 136/77 11/12/22 08:42 91 H 129/90 11/12/22 08:26 81 135/74 11/12/22 08:11 80 136/84 11/12/22 07:54 97.9 F 78 20 135/85 11/12/22 08:08 97.9 F 80 20 136/84 Coding Level of Care Code None Diagnoses Encounter for induction of labor Z34.90
--- NOTE | 2022-11-12 17:42 | Delivery Summary ---
Vaginal Delivery Summary Date of Service November 12, 2022 Vaginal Delivery Summary DIAGNOSES: 1. Price intrauterine at 41w gestation. 2. Induction of Labor. 3. Group B Streptococcus Neg. PROCEDURE: Spontaneous vaginal delivery and repair of 1st degree laceration. SURGEON: Marcella Titus MD. MANAGER ADMINISTRATION: None. ESTIMATED BLOOD LOSS: 250 mL. COMPLICATIONS: None. PLACENTA: Spontaneous and intact with a 3-vessel cord. DISPOSITION: Stable to labor and delivery. DESCRIPTION: The patient pushed well and brought the head to in DOA position. The 's head was allowed to deliver with contraction force and no further active pushing, with the perineum protected during this time. There was one nuchal cord. The left shoulder was anterior. The shoulders and body delivered without any difficulty, and the infant was placed on the maternal abdomen. It was vigorous and moving all extremities, and making respiratory efforts. The cord was doubly clamped by the MD and then cut by the FOB. The placenta delivered spontaneously and was noted to be intact and with a 3VC. The cervix, vagina and perineum were examined and were found to have a small first degree posterior vaginal laceration which was repaired in running locked fashion with vicryl suture. The fundus was firm and lochia minimal immediately after delivery. [facility] Vaginal Delivery Charge Vaginal Delivery Codes: 17340 global code for the antepartum, delivery, and post-
--- NOTE | 2022-11-12 18:45 | Anesthesia Procedure Note ---
Date of Service November 12, 2022 Anesthesia Post Epidural Note Vital Signs Vital Signs: Temp Pulse Resp BP Pulse Ox 36.6 C 86 20 133/81 100 11/12/22 15:45 11/12/22 18:42 11/12/22 15:45 11/12/22 18:42 11/12/22 17:29 Pain Intensity Bilateral Abdomen: Pain Intensity: 0 Notes Mental Status: alert / awake / arousable and participated in evaluation Nausea / Vomiting: adequately controlled Pain: adequately controlled Airway Patency, RR, SpO2: stable & adequate BP & HR: stable & adequate Hydration State: stable & adequate Neuraxial Anesthesia: was administered and sensory block is resolving Anesthetic Complications: no major complications apparent and Pt Satisfied with anesthetic care Epidural: Removed without complications and With tip intact
[2022-11-12] MEDS ORDERED: BENZOCAINE 20% AER SPR 82.5 GM CAN EXT PRN (18:52)
[2022-11-12] MEDS ORDERED: DIPHTHERIA/TETANUS/PERTUSSIS 0.5mL SYR/VIAL (Age 7+yrs) IM ONE (18:52)
[2022-11-12] MEDS ORDERED: HYDROCORTISONE ACETATE 25 MG SUPP PR PRN (18:52)
[2022-11-12] MEDS ORDERED: ACETAMINOPHEN 325 MG TAB PO PRN (18:52)
[2022-11-12] MEDS ORDERED: oxyCODONE/ACETAMINOPHEN 5mg/325mg TAB PO PRN (18:52)
[2022-11-12] MEDS ORDERED: IBUPROFEN 600 MG TAB PO PRN (18:52)
--- NOTE | 2022-11-13 05:17 | Obstetrical Progress Note ---
Date of Service November 13, 2022 Assessment & Plan (1) care following vaginal delivery: Plan - Overall, feeling well and eating well today - Infant feeding going well without concern - Urinating and passing gas appropriately - Ambulating well in room - Pain controlled, Ibuprofen ordered PRN - Hgb 13.1 on 11/12 - Vitals stable and wnl - Routine PP care progressing well - Anticipate discharge @ 24-48 hours PP - Recommending f/u outpatient in 6 weeks Admission and Anticipated Discharge Date Admission Date: November 12, 2022 Subjective Patient is a 32F who is PPD #1 following delivery at 41 2/7. She reports feeling well overall this morning. - Ambulation - well throughout room - Voiding/Ann - independent voids, no dysuria or pressure - Gas/Stool - passing gas, no bowel movement - Diet - regular, no nausea or emesis - Lochia - diminishing, light amount - Infant Feeding Type - breast feeding - Pain Level - 0/10, controlled Review of Systems - Denies fever, chills, sweats - Denies shortness of breath, difficulty breathing, chest pain, palpitations, chest pressure. - Denies breast pain. - Denies dysuria. - Denies headache or changes in vision. Physical Exam Physical Exam: General: Alert, oriented. No acute distress. Cardiac: RRR, normal S1/S2, no murmurs/rubs/gallops. Respiratory: Non-labored, CTAB, no wheezes/rales/rhonchi. Symmetric chest rise. Abdomen: Soft, nontender, nondistended. Bowel sounds present. Uterus: Uterine fundus firm, palpable 2 cm below umbilicus. Lower Extremities: No lower extremity edema or swelling. No deep calf pain. Harjeet's negative bilaterally. Results & Data ([facility]) Vital Signs (Past 12 Hours) Vital Signs Temp Pulse Pulse Resp BP BP Pulse Ox 11/12/22 23:50 36.5 C 66 18 121/77 11/12/22 21:15 36.6 C 80 18 125/83 11/12/22 19:27 76 11/12/22 19:27 131/74 11/12/22 19:03 69 11/12/22 19:03 125/77 11/12/22 18:58 73 11/12/22 18:58 127/85 11/12/22 18:42 86 11/12/22 18:42 133/81 11/12/22 18:30 69 11/12/22 18:30 125/59 L 11/12/22 18:13 74 11/12/22 18:13 119/77 11/12/22 17:43 79 123/57 L 11/12/22 17:29 87 100 11/12/22 17:24 77 97 11/12/22 17:23 76 84 L 11/12/22 17:19 84 100 11/12/22 17:17 92 H 89 L Resident Activity Tracking Resident Involvement: Resident Care Provided Care Provided: OB Delivery
[2022-11-13 06:53] LABS: Hemoglobin 12.7 g/dl (12.0-16.0); Mean Corpuscular Hemoglobin 31.1 pg (25.0-34.0); Mean Corpuscular Hgb Conc 35.3 g/dL (32.0-36.0); Platelet Count 247 K/uL (130-400); RDW Coefficient of Variation 13.4 % (11.5-14.5); RDW Standard Deviation 43.1 fL (36.4-46.3); Red Blood Count 4.09 M/uL (4.20-5.40); White Blood Count 13.79 K/ul (4.8-10.8)
[2022-11-13] MEDS: PRENATAL VITAMIN 1 TAB PO SCH (07:54)
[2022-11-13] MEDS: DOCUSATE SODIUM 100 MG CAP PO SCH ×3 (07:54→21:14)
--- NOTE | 2022-11-14 05:35 | Obstetrical Progress Note ---
Date of Service November 14, 2022 Assessment & Plan (1) care following vaginal delivery: Plan - Overall, feeling well and eating well today - feeding going well without concern - Urinating and passing gas appropriately - Ambulating well in room - Pain controlled, Ibuprofen ordered PRN - Hgb 12.7 on 11/13 - Vitals stable and wnl - Routine PP care progressing well - Anticipate discharge @ 24-48 hours PP - Discussed discharge instructions - Recommending f/u outpatient in 6 weeks Admission and Anticipated Discharge Date Admission Date: November 12, 2022 Subjective Patient is a 32F who is PPD #2 following delivery at 41 2. She reports feeling well overall this morning. - Ambulation - well throughout room - Voiding/Ann - independent voids, no dysuria or pressure - Gas/Stool - passing gas, no bowel movement - Diet - regular, no nausea or emesis - Lochia - diminishing, light amount - Infant Feeding Type - breast feeding - Pain Level - 2/10, controlled w/o medication Review of Systems - Denies fever, chills, sweats - Denies shortness of breath, difficulty breathing, chest pain, palpitations, ch est pressure. - Denies breast pain. - Denies dysuria. - Denies headache or changes in vision. Physical Exam Physical Exam: General: Alert, oriented. No acute distress. Cardiac: RRR, normal S1/S2, no murmurs/rubs/gallops. Respiratory: Non-labored, CTAB, no wheezes/rales/rhonchi. Symmetric chest rise. Abdomen: Soft, nontender, nondistended. Bowel sounds present. Uterus: Uterine fundus firm, palpable 2 cm below umbilicus. Lower Extremities: No lower extremity edema or swelling. No deep calf pain. Harjeet's negative bilaterally. Results & Data ([facility]) Vital Signs (Past 12 Hours) Vital Signs Temp Pulse Resp BP O2 Del Method 11/14/22 00:00 36.5 C 79 18 123/77 Room Air 11/13/22 19:05 36.8 C 82 18 126/88 Room Air Resident Activity Tracking Resident Involvement: Resident Care Provided Care Provided: OB Delivery
[2022-11-14 06:22] LABS: Hematocrit (blood only) 37.8 % (37.0-47.0); Hemoglobin 12.9 g/dl (12.0-16.0)
[2022-11-14] MEDS: PRENATAL VITAMIN 1 TAB PO SCH (07:57)
[2022-11-14] MEDS: DOCUSATE SODIUM 100 MG CAP PO SCH (07:57)
== END 2022-11-14 10:40 | disposition home or self-care (01) | DRG 807 ==
LOC: 4S1 07:49 → 4E2 20:36